=== PATIENT | female | born 1985 | race Caucasian/White ===

== ENCOUNTER 2020-10-31 08:10 | Emergency (ER) | payer OTHER, SELFPAY ==
[2020-10-31 08:22] VITALS: BP 138/81; PULSE 90; RESP 16; TEMP 37.4; O2SAT 99
--- NOTE | 2020-10-31 08:41 | ED.URI ---
HPI - URI/Sore Throat General Chief Complaint: Upper Respiratory Infection Stated Complaint: Sore Throat History of Present Illness HPI Narrative: This a 35-year-old female comes in complaining of a sore throat that started yesterday. Patient denies taking anything for her symptoms although sometime this week she did take some sinus medication. Patient denies any fever nausea and/or vomiting or no other symptoms. Related Data Home Medications Medication Instructions Recorded Confirmed Iud 10/31/20 Allergies Allergy/AdvReac Type Severity Reaction Status Date / Time No Known Allergies Allergy Mild Unverified 04/07/06 13:49 Review of Systems Review of Systems: Narrative: CONSTITUTIONAL: Denies fever, chills, or sweats. EYES: Denies visual changes, redness, or discharge. ENT: Denies rhinorrhea, congestion, reports sore throat, or otalgia. CARDIOVASCULAR:Denies chest pain, palpitations, or edema. RESPIRATORY: Denies cough or dyspnea. GASTROINTESTINAL: Denies abdominal pain, nausea, vomiting, or diarrhea. GENITOURINARY: Denies dysuria or hematuria. SKIN:[Denies rash or itching. MUSCULOSKELETAL:Denies back pain, joint pain, or myalgia. NEUROLOGIC: Denies headache, numbness, or weakness. PSYCHIATRIC:Denies anxiety or depression PMFSH Comments At time as signature, I have reviewed and agree with nursing past medical, social, surgical and family history. Please see nursing chart for further information. There is no relevant family history pertinent to the presenting complaint. Exam Narrative: Exam Narrative: GENERAL:Well-appearing, well-nourished, and in no acute distress. HEAD:Normocephalic, atraumatic. EYES: PERRLA and EOMI. ENT: Nares clear, no rhinorrhea or epistaxis. Mucous membranes moist. Erythema to the throat and tonsil NECK: Supple. CHEST: Clear to auscultation. No respiratory distress. HEART: Regular rate and rhythm. No murmur heard. Normal peripheral pulses. ABDOMEN: Soft, nontender, nondistended, normal active bowel sounds. EXTREMITIES: Normal range of motion. No edema. SKIN: Warm, dry, no rash. NEURO: No focal deficits. Alert and oriented x3. Course Course Emergency Course: Negative strep Vital Signs Vital signs: Vital Signs Temperature 99.3 F 10/31/20 08:22 Pulse Rate 90 10/31/20 08:22 Respiratory Rate 16 10/31/20 08:22 Blood Pressure 138/81 10/31/20 08:22 Pulse Oximetry 99 10/31/20 08:22 Temperature 99.3 F 10/31/20 08:22 Pulse Rate 90 10/31/20 08:22 Respiratory Rate 16 10/31/20 08:22 Blood Pressure 138/81 10/31/20 08:22 Pulse Oximetry 99 10/31/20 08:22 MDM - URI/Sore Throat Differential Diagnosis Differential diagnosis: Likely upper respiratory infection, viral infection, bronchitis and pharyngitis Lab Data Labs: Strep Screen Presumptive Negative *(Reference Range: Negative)* Discharge Plan Discharge Clinical Impression: Pharyngitis Qualifiers: Pharyngitis/tonsillitis etiology: unspecified etiology Qualified Code(s): J02.9 - Acute pharyngitis, unspecified Patient Disposition: Home, Self-Care Condition: Stable Instructions: Antibiotic Form, Pharyngitis (ED), Allergic Rhinitis (ED) Additional Instructions: discharge instructions take the medication as prescribed. Your Strep test today is negative Salt water gargles and/or may use topical anesthetic (eg. Chloraseptic spray) Take tylenol and ibuprofen as needed for pain and fever as directed. Throw away the toothbrush after 24hours if you were prescribed antibiotic. Follow up with primary care provider in 2-3 days if condition is not improving or seek ER visit if your child starts breathing fast/has trouble breathing, is not drinking enough fluids, will not wake up or will not interact with you. Viral illness may last between 7-12days; antibiotic is NOT recommended at this time. Recommend antihistamine such as Benadryl at ni
== END 2020-10-31 09:01 | disposition home or self-care (01) ==
PROVIDERS: Emergency Provider Nurse Practitioner Family
DX: J02.9 Acute pharyngitis, unspecified (principal)
CPT/HCPCS: 87081; 87880; 99213; G0463

== ENCOUNTER 2025-03-14 00:38 | Day surgery (SDC) | payer OTHER, SELFPAY ==
[2025-03-10 08:55] VITALS: BMI 36.8
--- NOTE | 2025-03-10 09:04 | SUR.PREOP ---
[facility] has started construction of its new state of the art ER which will open Spring 2026. With this, we anticipate parking may be a challenge for some our surgical patients and families. Parking spaces are limited but are available for all Surgical, obstetrics, and ER patients sharing this lot. If you arrive and find you are having a hard time finding a parking space, please note that we understand the challenges, please drive around the hospital and park near Hospital Entrance 1. When you enter this entrance, you can ask a volunteer to direct or take you back to the surgical waiting area to check in. We appreciate everyone?s understanding of these expected challenges while we build for your future. Report to the Outpatient Waiting Room, entrance under the green pavilion located off [address], at time 7:45a.m. on date 03/14/2025. Planned Procedure Time: 9:45a.m. Time changes happen often and if your time is changed the preop area will call you the afternoon before. - You and your visitor will be asked to self-screen and do not enter if you have any COVID symptoms. Please call surgeon if you need to reschedule. - A mask is optional within the hospital at this time. Patients may have clear liquids (water, carbonated beverages, clear teas, apple juice) until 3 hours prior to surgery with a maximum of 20 ounces. - No food from midnight until time of surgery and no smoking, or chewing tobacco (or any form of nicotine). No chewing gum, candy or mints. Take only the following medications with a SIP of water on the morning of surgery: NONE (antibiotic will be completed tomorrow 03/11) DO NOT STOP ANY OF YOUR OTHER PRESCRIPTION MEDICATIONS PRIOR TO SURGERY EXCEPT THE FOLLOWING Hold all vitamins and supplements for 3 days per anesthesiologist. PROBIOTIC AND VITAMIN D2 Medications to discontinue per physician n/a Date to take last dose03/11/2025 Please no make-up, nail yakut, hairspray, perfume, deodorant, or body powder the day of surgery.? No jewelry (including any body piercings) or valuables the day of surgery, leave them at home.? Please take a shower or bath the night before, or the morning of, surgery with an antibacterial soap.? Wear comfortable, loose fitting clothing.? Children are encouraged to wear pajamas. - Jewelry must be removed prior to entering the operating room.? Rings and piercings that are not removed may be cut off. - The hospital will not accept responsibility for valuables.? - Please leave all valuables, including medications, at home the day of surgery. If you are going home after surgery, a licensed line haul driver must drive you home.? - NO public transportation without another adult if you receive anesthesia. - We recommend that an adult stay with you for 24 hours following discharge. - We also recommend that you do not drive, make important decision, drink alcoholic beverages, or take any drugs that were not prescribed by your health care provider for at least 24 hours after your discharge time. For Pediatric surgeries, we recommend two adults accompany the child home. Follow any additional instructions given to you from your surgeon. Telephone instructions given to Agnieszka Arreguin and asked if any additional questions and then verbalized understanding. Patient advised to call surgeon office or pre surgery nurse liaison [phone] if any additional questions.
--- NOTE | 2025-03-14 07:30 | WPDHPUPDATE1 ---
History and Physical Update Update Date/Time: 03/14/25 07:30 History and Physical has been reviewed, including an updated exam of the patient. There are NO changes in the patient's condition. Risks, benefits, and alternatives have been discussed and questions answered. Patient agrees to proceed with procedure.
--- NOTE | 2025-03-14 07:31 | PM.HPGS ---
History of Present Illness History of Present Illness Consent: Risks, benefits, and alternatives have been discussed and questions answered. Patient agrees to proceed with procedure. Chief complaint: CORINNA 3, atypical glandular cells Narrative: Agnieszka Arreguin is a 39 year old female who presents for LEEP conization and hysteroscopy D&C. Patient has a history abnormal Pap smear reading atypical squamous cells cannot exclude high-grade with atypical glandular cells. Colposcopy revealed CORINNA 3 at 10:00 a.m. biopsy, the endocervical cells with focal atypica, and endometrium with a possible infarcted polyp on endometrial biopsy. It was recommended to proceed with hysteroscopy with D&C as as a LEEP. The patient has had a prior LEEP. The decision for a top-hat will be made at the time surgery based the cervical length after the LEEP is performed. Risks of infection, bleeding, perforation, and possible pathology are reviewed. The patient has an IUD in place. The patient is aware the strings will be cut making the ventral removal of the IUD she is slightly more complex and uncomfortable. The patient voices understanding and agrees to proceed. Review of Systems Review of Systems: not repeated day of surgery; patient states no changes in status [facility] Past Medical History Medical History (Updated 03/14/25 @ 07:57 by Li Panchal MD) History of spontaneous (normal spontaneous vaginal delivery) X2 Surgical History Surgical History (Updated 03/14/25 @ 07:54 by Li Panchal MD) History of loop electrical excision procedure (LEEP) 2006 Social History Social History Smoking status: Never smoker Alcohol intake: current Alcohol use details: Few times a month Substance use: current Substance use type: marijuana Other substance usage details: Smoking and edibles several times a week Living arrangements: with family Spiritual care concerns: No Meds Home Medications and Allergies Home Medications ?Medication ?Instructions ?Recorded ?Confirmed ?Type IUD 10/31/20 History Garden of Life Raw Probiotic 1 cap PO DAILY 03/10/25 03/10/25 History ergocalciferol (vitamin D2) 1,250 1,250 mcg PO WEEKLY 03/10/25 03/10/25 History mcg (50,000 unit) capsule moxifloxacin 400 mg tablet 400 mg PO Q24H 03/10/25 03/10/25 History Allergies Allergy/AdvReac Type Severity Reaction Status Date / Time No Known Allergies Allergy Mild Verified 03/10/25 08:50 Exam Const: General: healthy appearing and alert Orientation/consciousness: patient oriented x3 Resp: Effort & Inspection: normal respiratory effort Auscultation: clear to auscultation bilaterally Cardio: Rate: regular rate Rhythm: regular rhythm GI: GI Palp: Yes Soft to palpation, No Tenderness to palpation present (GI) and No Palpable mass present : External Female Exam: normal external appearance Speculum Exam - Vagina: normal appearance of the vagina and normal vaginal discharge Speculum Exam - Cervix: Other cervical findings present (Colposcopy reveals aceto-white epithelium at 11 and 5, cervix is friable) Bimanual exam- vagina & uterus: uterine size normal (Uterus sounds to 7cm) and consistency normal Bimanual Exam- Adnexa, other: normal adnexae and No adnexal tenderness Neuro: General: patient oriented x3 Assessment and Plan Assessment and plan (1) Severe dysplasia of cervix: Code(s): 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
[2025-03-14 08:00] VITALS: BP 138/92; PULSE 78; RESP 16; TEMP 36.5; O2SAT 99; BMI 36.5
[2025-03-14] MEDS: ACETAMINOPHEN 500 MG TABLET 1000 MG PO (08:15)
--- NOTE | 2025-03-14 08:50 | WPDANESEPPF ---
Anes - Initial Pre Proc Eval Procedure: Operation Date: 03/14/25 09:45 Proposed Procedures p Hysteroscopy, Dilation and Curettage, - Li Panchal MD s Loop Electrical Excision Procedure with Top hat - Li Panchal MD Date/Time: 03/14/25 08:50 Surgeon: Li Panchal MD Pre Op Diagnosis: CORINNA 3, atypical glandular cells Patient Data Age: 39 Gender: F Height: 1.63 m Weight: 97.5 kg Allergies Allergy/AdvReac Type Severity Reaction Status Date / Time No Known Allergies Allergy Mild Verified 03/10/25 08:50 Home Medications ?Medication ?Instructions ?Recorded ?Confirmed ?Type IUD 10/31/20 History Garden of Life Raw Probiotic 1 cap PO DAILY 03/10/25 03/10/25 History ergocalciferol (vitamin D2) 1,250 1,250 mcg PO WEEKLY 03/10/25 03/10/25 History mcg (50,000 unit) capsule moxifloxacin 400 mg tablet 400 mg PO Q24H 03/10/25 03/10/25 History Patient hx anesthesia problems: none Family hx anesthesia problems: none Results Review: All pre-operative results and documents have been reviewed as part of the pre-operative evaluation. [facility] Past Medical History Medical History History of spontaneous (normal spontaneous vaginal delivery) X2 Surgical History Surgical History History of loop electrical excision procedure (LEEP) 2006 Social History Social History Smoking status: Never smoker Alcohol intake: current Alcohol use details: Few times a month Substance use: current Substance use type: marijuana Other substance usage details: Smoking and edibles several times a week Living arrangements: with family Spiritual care concerns: No Anes - Eval Final PreProcedure Day of Procedure 03/14/25 08:50 Patient weight: obese Lungs: normal air movement Airway: Mallampati scale class II Neurological: alert and oriented Last oral intake: >/= 8 hours ASA classification: II Emergent: no Anesthetic plan: proceed Anesthesia type and monitoring: general GIVS and standard monitoring Results Review: All pre-operative results and documents have been reviewed as part of the pre-operative evaluation. BMI 36, pt active w walking, no cp or sob. Informed Consent: The patient's anesthetic plan and its attendant risks and benefits were discussed with the patient/family/POA. Questions were solicited and answers provided to the satisfaction of the patient/family/POA.
[2025-03-14] MEDS: LIDO 1%/EPINEPHRINE 1:100,000 20 ML VIAL INFILTRATE (09:03)
[2025-03-14 09:10] LABS: BEDSIDEPREGUCG Negative (Negative)
--- NOTE | 2025-03-14 09:16 | S_PTH ---
PATIENT: Agnieszka Arreguin LOC: [facility] U#:[id number] AGE/SX: 39/F ROOM: RE03/14/[address]: Li Panchal MD : 1985 BED: DIS: 03/14/2025 SPEC #: [id number] RECD: 03/14/25 10:09 STATUS: BERRY REQ #: [id number] SHUKRI: 03/14/25 09:[address]: Li Panchal DEPT: [facility] Surgical RECD BY: Gogo Cooper ENTERED: 03/14/25 10:09 SP TYPE: Surgical OTHR DR: STRAIGHTENER PHYSICIAN Tissues: A - Leep/Cone B - Leep/Cone C - Endometrial Curettings Procedures: Hematoxylin and Eosin Stain Gross and Microscopic Level 4 Gross and Microscopic Level 5
[2025-03-14] MEDS: FERRIC SUBSULFATE 8 ML SOLUTION WITH APPLICATOR TOPICAL (09:23)
[2025-03-14 09:32] VITALS: BP 94/52; PULSE 70; RESP 16; O2SAT 100
[2025-03-14] MEDS: LACTATED RINGERS 1,000 ML 30 ML IV CONT (09:32)
--- NOTE | 2025-03-14 09:32 | W.PM.PROC2 ---
Procedure Note - Detailed Date of Procedure 03/14/25 Pre-op Diagnosis CORINNA 3, atypical glandular cells Post-op Diagnosis Same Procedure Performed LEEP, D&C hysteroscopy Surgeon Li Panchal MD Anesthesia MAC and Local (1% lidocaine with epinephrine) Findings Cervix has aceto-white at 1:00, 11:00, & 5;00. Endometrium appears grossly normal. Description of Procedure The patient was taken to operating room and placed under anesthesia in the dorsal lithotomy position. She is prepped and draped in the normal sterile fashion externally. The coated bivalve speculum was placed in the vagina and the cervix bathed in acetic acid. The cervix is inspected with the microscope with the above-stated findings. The cervix was injected in each quadrant with 1% lidocaine with epinephrine. A 2x1cm loop is used to perform an anterior pass of 60 w of cutting power. The same loop was used to perform a posterior pass 60 w of cutting power. A tenaculum was applied to the anterior cervix. The uterus is then sounded to 8cm. The diagnostic hysteroscope was placed and with no abnormalities noted it is removed. The sharp curette was used to curette the endometrium until a good uterine cry was noted in all areas. Monsel's was applied to the cone base and the tenaculum removed. Good hemostasis was noted. All instruments are removed. Sponge, needle, and instrument counts are correct per the OR staff. Patient was taken to recovery in stable condition. Estimated Blood Loss 25 Drains No Packing No Pathology Yes (Anterior LEEP marked at 12 with suture, posteriorly marked at 6 with suture, endometrial curettings) Complications No immediate complications Condition Stable Disposition PACU
[2025-03-14] MEDS: oxyCODONE HCL (*CRX) 5 MG TAB IR PO (09:58)
[2025-03-14 10:00] VITALS: BP 135/77; PULSE 62; RESP 16
[2025-03-14 10:25] VITALS: BP 140/90; PULSE 57; RESP 14
== END 2025-03-14 10:30 | disposition home or self-care (01) ==
PROVIDERS: Anesthesiology; Visit Provider Obstetrics & Gynecology Gynecology
PROC: 0U5B8ZZ Destruction of Endometrium, Via Natural or Artificial Opening Endoscopic (ICD-10-PCS; CPT 58563; principal; 2025-03-14 09:45)
PROC: 0UBC7ZZ Excision of Cervix, Via Natural or Artificial Opening (ICD-10-PCS; CPT 57522; 2025-03-14 09:45)
DX: R87.613 High grade squamous intraepithelial lesion on cytologic smear of cervix (HGSIL) (principal); R87.612 Low grade squamous intraepithelial lesion on cytologic smear of cervix (LGSIL); N72 Inflammatory disease of cervix uteri; N88.8 Other specified noninflammatory disorders of cervix uteri; F12.90 Cannabis use, unspecified, uncomplicated; E66.9 Obesity, unspecified; Z68.36 Body mass index [BMI] 36.0-36.9, adult; Z98.890 Other specified postprocedural states
CPT/HCPCS: 57522; 58558; 58301; 88305; 88307; A9270; J1885; J2003; J2004; J2250; J2405; J2704; J3010; J7120

== ENCOUNTER 2025-05-22 08:23 | Emergency (ER) | payer OTHER, SELFPAY ==
--- NOTE | 2025-05-22 08:26 | ED.EAR ---
HPI - Ear Problem General Chief complaint: Upper Respiratory Infection Stated complaint: right ear pain Time Seen by Provider: 05/22/25 08:25 Source: patient Mode of arrival: ambulatory Limitations: no limitations History of Present Illness HPI Narrative: Patient is a 39-year-old female who presents with right ear pain, congestion and sore throat that started this morning. Denies any fever, chills, nausea, vomiting, diarrhea. Has not taken anything for symptoms MD Complaint: ear pain Related Data Home Medications ?Medication ?Instructions ?Recorded ?Confirmed ?Last Taken ?Type ergocalciferol (vitamin D2) 1,250 1,250 mcg PO WEEKLY 03/10/25 05/22/25 Unknown History mcg (50,000 unit) capsule Allergies Allergy/AdvReac Type Severity Reaction Status Date / Time No Known Allergies Allergy Mild Verified 05/22/25 08:33 Review of Systems Review of Systems: All systems reviewed & are unremarkable except as noted in HPI and below Constitutional: Constitutional: Denies body ache(s), Denies chills, Denies fever(s), Denies headache(s) and Denies malaise Eyes: Eyes: Denies blurry vision, Denies eye discharge and Denies irritation ENT: Reports otalgia, Denies headache(s), Reports nasal congestion, Denies nasal discharge and Reports sore throat Cardiovascular: Cardiovascular: Denies chest pain, Denies edema, Denies palpitations and Denies dyspnea on exertion Respiratory: Respiratory: Denies cough and Denies dyspnea on exertion Gastrointestinal: Gastrointestinal: Denies abdominal pain, Denies diarrhea, Denies nausea and Denies vomiting Musculoskeletal: Musculoskeletal: Denies back pain, Denies arthralgias and Denies muscle weakness Integumentary/Breasts: Skin/Breast: Denies pruritus and Denies rash Neurologic: Denies headache(s) Psychiatric: Psychiatric: Reports no additional psychiatric complaints Endocrine: Endocrine: Denies palpitations PMFSH Past Medical History Medical History History of spontaneous (normal spontaneous vaginal delivery) X2 Surgical History Surgical History History of loop electrical excision procedure (LEEP) 2006 Social History Social History Smoking status: Never smoker Alcohol intake: current Alcohol use details: Few times a month Substance use: current Substance use type: marijuana Other substance usage details: Smoking and edibles several times a week Living arrangements: with family Spiritual care concerns: No Comments At time of signature, agree with nursing past medical, surgical, social and family history. There is no relevant family history pertinent to the presenting complaint? Exam Const: General: cooperative, healthy appearing, no acute distress and well nourished Nutritional Appearance: well nourished Orientation/consciousness: patient oriented x3 Limitations: no limitations HENMT: Head: normal to inspection, normocephalic and atraumatic Ears: hearing grossly normal bilaterally, TM's normal bilaterally, EAC's normal and no periauricular adenopathy Face/Nose/Sinus: Normal external nose present, Normal nares present, Normal nasal mucous membranes and turbinates present, No nasal discharge present, normal facial exam and sinuses nontender Face and sinus: normal facial exam and sinuses nontender Mouth: Yes Normal oral and palatal mucosa present, Yes lip normal, Yes tongue normal and Yes moist mucous membranes Throat: posterior oropharynx normal, tonsils normal and uvula midline Eyes: General: appearance normal, both eyes and all related structures Alignment and Position: alignment normal and position normal Eyelids: eyelids normal Pupils: Equal, round and reactive pupils present EOM: EOMs intact bilaterally Neck: Neck: normal visual inspection, full ROM, no lymphadenopathy and supple Chest: Chest palpation & inspection: normal inspection of the chest Resp: Effort & Inspection: normal respiratory effort and able to speak in complete sentences Auscultation: clear to auscultation bilaterally, no crackles, no rales, no rhonchi and no wheezes Cardio: Rate: regular rate Rhythm: regular rhythm Heart sounds: S1 normal heart sound present and S2 normal heart sound present Skin: General skin exam: normal color and no rashes or lesions noted Neuro: General: patient oriented x3 and moves all extremities Cranial nerves: Yes Equal, round and reactive pupils present Cognition (Neuro): normal cognition Speech: normal speech Gait exam (Neuro): Normal gait present Extrem: General: normal to inspection and full ROM Psych: Appearance: grossly normal and well kempt Mental Status: mental status grossly normal Speech and movement: Normal speech and movement present Course Course Emergency Course: Patient is aware of diagnosis, understands and agrees to treatment plan. Anticipatory guidance given. Patient agrees to follow-up as directed and is aware of reasons to seek care at the emergency department. Portions of this record may have been created with voice recognition software Level of Care: Express Care Visit Vital Signs Vital signs: Vital Signs Temperature 36.2 C L 05/22/25 08:34 Pulse Rate 94 05/22/25 08:34 Respiratory Rate 18 05/22/25 08:34 Blood Pressure 135/75 05/22/25 08:34 Pulse Oximetry 99 05/22/25 08:34 Oxygen Delivery Room Air 05/22/25 08:34 Temperature 36.2 C L 05/22/25 08:34 Pulse Rate 94 05/22/25 08:34 Respiratory Rate 18 05/22/25 08:34 Blood Pressure 135/75 05/22/25 08:34 Pulse Oximetry 99 05/22/25 08:34 Oxygen Delivery Room Air 05/22/25 08:34 [facility] Narrative Medical decision making narrative: patient was negative for COVID in flu. Likely viral in etiology Pt well hydrated appearing, in no respiratory distress, hemodynamically stable. Recommend supportive care. The patient is stable at time of discharge the clinical impression was discussed and the patient was given the opportunity to ask questions, which were addressed as completely as possible given the information available at present. Anticipatory guidance and return to care precautions were discussed and the importance of primary care follow-up was stressed and encouraged. The patient voiced understanding of the plan, indications to return, and the need for follow-up. Exam findings show no acute concerns or changes Patient is appropriate for outpatient treatment and follow-up. Differential Diagnosis Differential Diagnosis: Differential diagnostic considerations for upper respiratory infection include upper respiratory infection, croup, otitis media, sinusitis, viral infection, bronchitis, influenza, pharyngitis, strep, uvulitis.? Medical Records I have reviewed the following patient records and this information was taken into consideration when formulating the assessment and plan.: previous clinic visits Lab Data [facility] Lab Attestation statement: I personally reviewed the patient's lab results. Labs: Lab Results 05/22/25 Range/Units 08:30 POC Influenza A Ag Negative (Negative) POC Influenza B Ag Negative (Negative) POC SARS CoV-2 Ag Negative (Negative) Discharge Plan Discharge Clinical Impression: Upper respiratory infection Qualifiers: URI type: acute nasopharyngitis (common cold) Qualified Code(s): J00 - Acute nasopharyngitis [common cold] Patient Disposition: Home Condition: Stable Instructions: Upper Respiratory Infection (ED) Additional Instructions: Your Covid and flu are both negative Your symptoms are likely due to a viral illness, which is not treated with antibiotics. Viral symptoms can be present for up to a few weeks. -For pain/fever, you may take: Tylenol 650-1000mg by mouth every 4-6 hours. Do not exceed 4000mg in 24 hours. Advil (Ibuprofen) 600 mg by mouth every 6 hours. Do not exceed 2400mg in 24 hours. 8 AM: Tylenol 11 AM: Ibuprofen 2 PM: Tylenol 5 PM: Ibuprofen 8 PM: Tylenol 11 PM: Ibuprofen 2 AM: Tylenol 5 AM: Ibuprofen -Antihistamine medication such as Benadryl/Zyrtec at night and Claritin/Hyacinth during the day can help improve symptoms. -Use Flonase twice a day for 5 days then daily to help reduce the inflammation and dry up your sinuses. -You can also use Sudafed behind the pharmacy counter(12 or 24 hour). Be sure to drink plenty of water with these medications at least 8 ounces with every dose and it is important to drink 8 to 10 glasses of water per day. Water is a natural decongestant -Eat and drink things that are easy to swallow, like tea or soup, or popsicles. -Oral rinses such as: Salt water gargles and/or may use topical anesthetic (eg. Chloraseptic spray) or lozenges to relieve dryness or throat pain). -Frequent hand washing or hand pharmacy technician assistant is one of the best ways to prevent spread of infection. -Using a vaporizer or humidifier at night will also help thin secretions and help with coughing up phlegm. Call your Primary Care Doctor and make a follow-up appointment in 3 days. If your cough worsens, you develop a fever greater than 103, you develop shaking chills, a fast heartbeat, trouble breathing and/or feel you are are breathing much faster than usual, call your Primary Care Doctor or go to the ER. Patient Language: Romanian Prescriptions: New fluticasone propionate [Flonase Allergy Relief] 50 mcg/actuation spray,suspension 1 spray intranasal DAILY Qty: 16 0RF Rx Instructions: administer into each nostril loratadine 10 mg tablet 10 mg PO DAILY Qty: 30 0RF No Action ergocalciferol (vitamin D2) 1,250 mcg (50,000 unit) capsule 1,250 mcg PO WEEKLY Follow-up/Referrals: Gloria Navarro MD [Physician, Family Practice] - 3 Days Time of Disposition: 08:55
[2025-05-22 08:34] VITALS: BP 135/75; PULSE 94; RESP 18; TEMP 36.2; O2SAT 99
[2025-05-22 08:58] LABS: EDCOVIDSCREEN Negative (Negative); EDINFLUASCREEN Negative (Negative); EDINFLUBSCREEN Negative (Negative)
== END 2025-05-22 09:04 | disposition home or self-care (01) ==
PROVIDERS: Emergency Provider Nurse Practitioner Family
DX: J00 Acute nasopharyngitis [common cold] (principal); Z20.822 Contact with and (suspected) exposure to COVID-19; F12.90 Cannabis use, unspecified, uncomplicated
CPT/HCPCS: 87426; 87804; 99213; G0463